=== PATIENT | female | born 1990 | race American Indian/Alaskan Native ===

== ENCOUNTER 2017-07-19 03:43 | Emergency (ER) | payer OTHER ==
[2017-07-19 04:47] LABS: Basophils % (Auto) 0.2 % (0.0-1.8); Eosinophils # (Auto) 0.6 K/mm3 (0.0-0.4); Eosinophils % (Auto) 7.2 % (0.0-4.3); Hematocrit 39.2 % (30.3-42.9); Hemoglobin 12.9 gm/dl (10.1-14.3); Lymphocytes # (Auto) 3.3 K/mm3 (1.2-5.4); Lymphocytes % (Auto) 42.7 % (13.4-35.0); Mean Corpuscular HGB Conc 33 % (30-34); Mean Corpuscular Hemoglobin 30 pg (28-32); Mean Corpuscular Volume 90 fl (79-97); Monocytes # (Auto) 0.5 K/mm3 (0.0-0.8); Monocytes % (Auto) 6.6 % (0.0-7.3); Platelet Count 224 K/mm3 (140-440); Red Blood Count 4.34 M/mm3 (3.65-5.03); Red Cell Distribution Width 13.5 % (13.2-15.2)
--- NOTE | 2017-07-19 06:46 | Ultrasound Report ---
FINAL REPORT EXAM: US OB < = 14 WEEKS FETUS HISTORY: and bleeding TECHNIQUE: Transabdominal imaging was obtained of the pelvis including Doppler interrogation of the uterus and adnexa. There are no previous studies available for comparison. FINDINGS: The uterus is anteverted measuring 12.9 cm x 4.6 cm x 6.8 cm. There is no evidence of a gestational sac in the uterus at this time. The endometrium is variable in thickness measuring up to 22.1 mm in thickness. Free fluid is not seen. In the vagina there is fluid and low-level echoes. The right ovary measures 2.6 cm x 2.1 cm x 1.5 cm. There is a 1.8 cm hypoechoic cyst measuring 1.8 cm in diameter. The left ovary is normal size contour and echotexture measuring 2.7 cm x 1.8 cm x 1.7 cm. The blood flow is normal both ovaries. IMPRESSION: Irregularly thickened endometrium without evidence of an intact gestational sac. The findings may related to retained products of conception. Fluid and low level echoes noted in the vagina also possibly related to products conception. Probable functional cyst in right ovary measuring 1.8 cm in diameter. No evidence of free fluid in the pelvis
[2017-07-19 07:40] VITALS: BP 140/76
[2017-07-19 08:54] LABS: Bilirubin,Urine NEG (Negative); Blood,Urine MOD (Negative); Color,Urine Red (Yellow); Urobilinogen,Urine < 2.0 mg/dL (<2.0)
[2017-07-19 08:55] LABS: RBC,Urine > 182.0 /HPF (0.0-6.0); WBC,Urine > 182.0 /HPF (0.0-6.0)
--- NOTE | 2017-07-19 08:57 | Emergency Department Report ---
ED HPI - General Chief complaint: Vaginal Bleeding Stated complaint: VAG BLEEDING; 11WKS GEST Time Seen by Provider: 07/19/17 08:45 Source: patient Mode of arrival: Ambulatory Limitations: No Limitations - History of Present Illness MD Complaint: abdominal pain, vaginal bleeding -: Sudden Location: pelvis Radiation: none Severity: mild Severity scale (0 -10): 2 Quality: cramping Consistency: colicky Improves with: rest Worsens with: movement Associated symptoms: vaginal bleeding, abdominal pain. denies: nausea/vomiting , vaginal discharge, dysuria, headache, vision changes, malaise, dysparuenia, rash, seizure, shortness of breath, syncope, weakness Vaginal bleeding: light, heavy :: Yes OB History - Current : no complications Pre-donnie care: followed by OB - Related Data Previous Rx's Medication Instructions Recorded Last Taken Type Acetaminophen/Codeine [Tylenol 1 tab PO Q4HR PRN #15 tablet 07/19/17 Unknown Rx /Codeine # 3 tab] Methylergonovine Maleate 0.2 mg PO TID 3 Days #9 tablet 07/19/17 Unknown Rx [Methergine] Allergies Allergy/AdvReac Type Severity Reaction Status Date / Time No Known Allergies Allergy Unverified 07/19/17 03:58 ED Review of Systems ROS: Stated complaint: VAG BLEEDING; 11WKS GEST Other details as noted in HPI Constitutional: denies: chills, fever Eyes: denies: eye pain, eye discharge, vision change ENT: denies: ear pain, throat pain Respiratory: denies: cough, shortness of breath, wheezing Cardiovascular: denies: chest pain, palpitations Endocrine: no symptoms reported Gastrointestinal: abdominal pain. denies: nausea, diarrhea Genitourinary: denies: urgency, dysuria, discharge Musculoskeletal: denies: back pain, joint swelling, arthralgia Skin: denies: rash, lesions Neurological: denies: headache, weakness, paresthesias Psychiatric: denies: anxiety, depression Hematological/Lymphatic: denies: easy bleeding, easy bruising ED Past Medical Hx - Past Medical History Previous Medical History?: No - Surgical History Past Surgical History?: No - Family History Family history: no significant - Social History Smoking Status: Never Smoker Substance Use Type: None - Medications Home Medications: Home Medications Medication Instructions Recorded Confirmed Last Taken Type Acetaminophen/Codeine [Tylenol 1 tab PO Q4HR PRN #15 tablet 07/19/17 Unknown Rx /Codeine # 3 tab] Methylergonovine Maleate 0.2 mg PO TID 3 Days #9 tablet 07/19/17 Unknown Rx [Methergine] ED Physical Exam - General Limitations: No Limitations General appearance: alert, in no apparent distress - Head Head exam: Present: atraumatic, normocephalic - Eye Eye exam: Present: normal appearance - ENT ENT exam: Present: mucous membranes moist - Neck Neck exam: Present: normal inspection - Respiratory Respiratory exam: Present: normal lung sounds bilaterally. Absent: respiratory distress - Cardiovascular Cardiovascular Exam: Present: regular rate, normal rhythm. Absent: systolic murmur, diastolic murmur, rubs, gallop - GI/Abdominal GI/Abdominal exam: Present: soft, normal bowel sounds - Extremities Exam Extremities exam: Present: normal inspection - Back Exam Back exam: Present: normal inspection - Neurological Exam Neurological exam: Present: alert, oriented X3 - Psychiatric Psychiatric exam: Present: normal affect, normal mood - Skin Skin exam: Present: warm, dry, intact, normal color. Absent: rash ED Course Vital Signs 07/19/17 07/19/17 03:53 07:29 Temperature 99 F Pulse Rate 84 83 Respiratory 18 Rate Blood Pressure 134/78 140/76 O2 Sat by Pulse 99 100 Oximetry - Reevaluation(s) Reevaluation #1: Discussed case with Dr. Dill, BOOKING OFFICER. She recommends Methergine 0.2 mg tid for 3 dasy. and f/u in office on sunday. Patient stable for discharge. Patient to be sent home with discharge instructions. Discussed all results with patient. Support given to patient and . All questions answered. Patient given BOOKING OFF[employer]ER information to follow up with them. Patient states that is her current BOOKING OFFICER as well. 07/19/17 09:38 ED Medical Decision Making - Lab Data Result diagrams: 07/19/17 04:22 - Medical Decision Making Ration is a 27-year-old female that presents to emergency room with abdominal cramping and vaginal bleeding and 11 weeks . She was found to have a miscarriage. Ultrasound reviewed with patient and will discharge patient home and to the care of her outpatient BOOKING OFFICER. Discussed case with patient's BOOKING OFFICER , Dr. Dill - Differential Diagnosis miscarriage. Incomplete miscarriage. Threatened miscarriage. Vaginal ble Critical care attestation.: If time is entered above; I have spent that time in minutes in the direct care of this critically ill patient, excluding procedure time. ED Disposition Clinical Impression: Vaginal bleeding, Spontaneous miscarriage Disposition: TO HOME OR SELFCARE Is pt being admited?: No Does the pt Need Aspirin: No Condition: Stable Instructions: Spontaneous Miscarriage (ED) Additional Instructions: Patient to follow up with primary care in 3-5 days. Patient to follow up with BOOKING OFFICER in 3-5 days. Patient to call BOOKING OFFICER for appointment KIM. Patient to return to your condition worsens. Patient to take meds as directed. Patient increase water. Patient to rest. Patient to take ibuprofen and Tylenol when necessary for pain. Patient to continue vitamin Prescriptions: Acetaminophen/Codeine [Tylenol /Codeine # 3 tab] 1 tab PO Q4HR PRN #15 tablet PRN Reason: Pain Methylergonovine Maleate [Methergine] 0.2 mg PO TID 3 Days #9 tablet Referrals: CLAUDIA WONG [Other] - 3-5 Days Time of Disposition: 11:03
== END 2017-07-19 11:29 | disposition home or self-care (01) ==
LOC: ED 03:43
DX: O03.9 Complete or unspecified spontaneous abortion without complication (principal); Z3A.11 11 weeks gestation of pregnancy
CPT/HCPCS: 36415; 76801; 81001; 84702; 85025; 86850; 86900; 86901; 99284